=== PATIENT | female | born 1960 | race Caucasian/White ===

== ENCOUNTER 2019-07-25 18:53 | Emergency (ER) | payer OTHER ==
[~2019-07-25] VITALS: Ht 165.1 cm; Wt 81.7 kg
[~2019-07-25 18:53] MED LIST: ESTRACE0.5 MG PO; FLOMAX0.4 MG PO; LORAZEPAM 1 MG T1 M1 PO; NORCO 5-325 TA1 EACH PO; NORFLEX100 MG PO; PAXIL10 MG PO; TOPROL XL25 MG PO; ZOFRAN ODT4 MG PO
[2019-07-25] MEDS ORDERED: TRAMADOL 50 MG50 MG PO (19:27)
[2019-07-25] MEDS ORDERED: NAPROSYN500 MG PO (19:27)
[2019-07-25 20:05] VITALS: BP 127/80
== END 2019-07-25 20:06 | disposition home or self-care (01) ==
LOC: ER 18:53
DX: S83.91XA Sprain of unspecified site of right knee, initial encounter (principal); Z88.8 Allergy status to other drugs, medicaments and biological substances; X50.0XXA Overexertion from strenuous movement or load, initial encounter; Y92.89 Other specified places as the place of occurrence of the external cause; Y93.89 Activity, other specified; Y99.0 Civilian activity done for income or pay